=== PATIENT | female | born 1995 | race Caucasian/White ===

== ENCOUNTER 2017-01-19 22:09 | Emergency (ER) | payer OTHER ==
[2017-01-19 21:33] LABS: URINE SOURCE CLEAN CATCH
[2017-01-19 21:44] LABS: URINE APPEARANCE CLEAR; URINE BILIRUBIN NEG (NEG); URINE BLOOD NEG (NEG); URINE COLOR YELLOW; URINE GLUCOSE NEG (NEG); URINE KETONE NEG (NEG); URINE LEUKOCYTE ESTERASE NEG (NEG); URINE NITRATE NEG (NEG); URINE PROTEIN NEG (NEG)
[2017-01-19 21:48] LABS: CULTURE INDICATED? NO
== END 2017-01-19 22:10 | disposition home or self-care (01) ==
LOC: CFTX 22:09
PROVIDERS: Nurse Practitioner Family
DX: O99.89 Other specified diseases and conditions complicating pregnancy, childbirth and the puerperium (principal); R30.0 Dysuria; Z88.1 Allergy status to other antibiotic agents
CPT/HCPCS: 81003; 84703; 99283